=== PATIENT | female | born 1990 | race Caucasian/White ===

== ENCOUNTER 2022-10-22 21:08 | Emergency (ER) | payer MEDICAID, OTHER ==
[~2022-10-22] VITALS: Ht 147 cm; Wt 65.0 kg
[~2022-10-22 21:08] MED LIST: CYCL10TA9 PO; DOXY100C2 PO; GUAI120S36 PO; ONDAN4ODT PO
[2022-10-22 21:13] VITALS: BP 146/96
--- NOTE | 2022-10-22 21:29 | ED Abdominal Pain ---
General Chief Complaint: Abdominal/GI Problems Stated Complaint: AB PAIN Source of Information: Patient Exam Limitations: No Limitations (ABRAHAN CRISTOBAL) History of Present Illness Date Seen by Provider: Oct 22, 2022 Time Seen by Provider: 21:27 Initial Comments Patient is a 32-year-old female with a history of C-sections who presents ED with lower abdominal pain. Pain started 1 hour ago. Described as sharp radiate throughout her lower abdomen. She reports nausea without vomiting. She did have a few episodes of diarrhea without any blood or mucus. She is been having a bowel movement near every day. She does have a burning pain up into her upper abdomen. She denies of any frequent urination but reports some mild vaginal discharge with intermittent vaginal bleeding. She reports vaginal spotting since September 12. She states she did have a menstrual cycle during this time. She states September 12 she put a bag of meth into her vagina and did remove it fairly quick. History of C-sections. Denies any fever, chills, bodies, chest pain, shortness of breath. History of acid reflux. She took Tylenol at home without much improvement. (ABRAHAN CRISTOBAL) Allergies and Home Medications Allergies Coded Allergies: Penicillins (Verified Allergy, Unknown, 10/22/22) Patient Home Medication List Home Medication List Reviewed: Yes (ABRAHAN CRISTOBAL) Cyclobenzaprine Hcl (Cyclobenzaprine Hcl) 10 Mg Tablet, 1 EACH PO Q8HR, (Reported) Entered as Reported by: DARLYN ACEVES on 01/09/11 165 Doxycycline Hyclate (Doxycycline Hyclate) 100 Mg Capsule, 1 EACH PO BID Prescribed by: TIM CRESPO on 01/30/112327 Guaifenesin/D-Methorphan Hb (Guaifenesin With Dm Syrup) 120 Ml Syrup, 2 TSP PO Q4H PRN Prescribed by: TIM CRESPO on 01/30/112327 Ondansetron (Ondansetron Odt) 4 Mg Tab.rapdis, 4 MG SL Q4H PRN for NAUSEA/VOMITING Prescribed by: WILLIE BOCANEGRA on 10/22/22 2307 Ondansetron Hcl (Zofran Oral Dissolve) 4 Mg Tab, 4 MG PO Q4H Prescribed by: NATTY SUN on 01/09/111746 Review of Systems Review of Systems Constitutional: No chills, No diaphoresis, No malaise EENTM: No Double Vision, No Eye Pain Respiratory: Denies Cough Gastrointestinal: Abdominal Pain; Denies Constipated; Nausea; Denies Vomiting Genitourinary: Denies Burning, Denies Discharge, Denies Drainage, Denies Frequency, Denies Hematuria; Other (Vaginal discharge, vaginal bleeding) Musculoskeletal: No back pain, No joint pain Skin: No change in color, No change in hair/nails Psychiatric/Neurological: Denies Anxiety (ABRAHAN CRISTOBAL) All Other Systems Reviewed Negative Unless Noted: Yes (ABRAHAN CRISTOBAL) Physical Exam Vital Signs Vital Signs - First Documented 10/22/22 21:13 Temp 37.0 Pulse 104 Resp 18 B/P (MAP) 146/96 (113) Pulse Ox 100 O2 Delivery Room Air (DENICE,SULEMA K DO) Vital Signs Capillary Refill : (ABRAHAN CRISTOBAL) Height/Weight/BMI Height: '" Weight: lbs. oz. kg; BMI Method:Stated General Appearance: WD/WN, no apparent distress HEENT: PERRL/EOMI, normal ENT inspection, TMs normal Neck: non-tender, full range of motion, supple, normal inspection Respiratory: chest non-tender, lungs clear, normal breath sounds, no respiratory distress, no accessory muscle use Cardiovascular: regular rate, rhythm, no edema, no gallop, no JVD Gastrointestinal: normal bowel sounds, soft, no organomegaly, no pulsatile mass, tenderness (Right and left lower quadrant tenderness. Normal bowel sounds throughout. No rebound or guarding.) Extremities: normal range of motion, non-tender, normal inspection, no pedal edema Back: normal inspection, no CVA tenderness Neurologic/Psychiatric: video intern II-XII nml as tested, no motor/sensory deficits, alert, normal mood/affect, oriented x 3 (ABRAHAN CRISTOBAL) Progress/Results/Core Measures Results/Orders Lab Results Laboratory Tests Test 10/22/22 21:15 10/22/22 21:30 10/22/22 21:32 Range/Units Urine Color YELLOW Urine Clarity CLEAR Urine pH 5.0 5-9 Urine Specific [place] >=1.030 1.016-1.022 Urine Protein NEGATIVE NEGATIVE Urine Glucose (UA) NEGATIVE NEGATIVE Urine Ketones NEGATIVE NEGATIVE Urine Nitrite NEGATIVE NEGATIVE Urine Bilirubin NEGATIVE NEGATIVE Urine Urobilinogen 0.2 < = 1.0 MG/DL Urine Leukocyte Esterase NEGATIVE NEGATIVE Urine RBC (Auto) NEGATIVE NEGATIVE Urine RBC NONE /HPF Urine WBC 0-2 /HPF Urine Squamous Epithelial Cells 0-2 /HPF Urine Crystals NONE /LPF Urine Bacteria TRACE /HPF Urine Casts NONE /LPF Urine Mucus SMALL H /LPF Urine Culture Indicated NO Urine Test NEGATIVE NEGATIVE White Blood Count 9.0 4.3-11.0 10^3/uL Red Blood Count 4.38 3.80-5.11 10^6/uL Hemoglobin 8.1 L 11.5-16.0 g/dL Hematocrit 28 L 35-52 % Mean Corpuscular Volume 64 L 80-99 fL Mean Corpuscular Hemoglobin 19 L 25-34 pg Mean Corpuscular Hemoglobin Concent 29 L 32-36 g/dL Red Cell Distribution Width 19.1 H 10.0-14.5 % Platelet Count 398 130-400 10^3/uL Mean Platelet Volume 9.9 9.0-12.2 fL Immature Granulocyte % (Auto) 1 % Neutrophils (%) (Auto) 61 42-75 % Lymphocytes (%) (Auto) 31 12-44 % Monocytes (%) (Auto) 6 0-12 % Eosinophils (%) (Auto) 2 0-10 % Basophils (%) (Auto) 0 0-10 % Neutrophils # (Auto) 5.5 1.8-7.8 10^3/uL Lymphocytes # (Auto) 2.8 1.0-4.0 10^3/uL Monocytes # (Auto) 0.5 0.0-1.0 10^3/uL Eosinophils # (Auto) 0.1 0.0-0.3 10^3/uL Basophils # (Auto) 0.0 0.0-0.1 10^3/uL Immature Granulocyte # (Auto) 0.1 0.0-0.1 10^3/uL Sodium Level 139 135-145 MMOL/L Potassium Level 3.7 3.6-5.0 MMOL/L Chloride Level 107 98-107 MMOL/L Carbon Dioxide Level 21 21-32 MMOL/L Anion Gap 11 5-14 MMOL/L Blood Urea Nitrogen 13 7-18 MG/DL Creatinine 0.81 0.60-1.30 MG/DL Estimat Glomerular Filtration Rate 98 BUN/Creatinine Ratio 16 Glucose Level 80 70-105 MG/DL Calcium Level 9.2 8.5-10.1 MG/DL Corrected Calcium 9.0 8.5-10.1 MG/DL Total Bilirubin 0.7 0.1-1.0 MG/DL Aspartate Amino Transf (AST/SGOT) 28 5-34 U/L Alanine Aminotransferase (ALT/SGPT) 14 0-55 U/L Alkaline Phosphatase 74 40-136 U/L Total Protein 7.5 6.4-8.2 GM/DL Albumin 4.2 3.2-4.5 GM/DL Lipase 88 H 8-78 U/L (SULEMA GALDAMEZ DO) Medications Given in ED Current Medications Medications Dose Ordered Sig/Buck Route Start Time Stop Time Status Last Admin Dose Admin Iohexol 100 ml ONCE ONCE IV 10/22/22 22:15 10/22/22 22:16 DC 10/22/22 22:38 80 ML Ketorolac Tromethamine 30 mg ONCE ONCE IVP 10/22/22 21:30 10/22/22 21:31 DC 10/22/22 21:48 30 MG Ondansetron HCl 4 mg ONCE ONCE IVP 10/22/22 22:00 10/22/22 22:01 DC 10/22/22 21:54 4 MG Pantoprazole Sodium 40 mg ONCE ONCE PO 10/22/22 23:30 10/22/22 23:31 DC 10/22/22 23:31 40 MG Simethicone 80 mg ONCE ONCE PO 10/22/22 23:30 10/22/22 23:31 DC 10/22/22 23:37 80 MG Sodium Chloride 10 ml NEEDED PRN IV 10/22/22 22:15 10/23/22 00:26 DC 10/22/22 22:38 10 ML Sodium Chloride 100 ml ONCE ONCE IV 10/22/22 22:15 10/22/22 22:16 DC 10/22/22 22:38 80 ML (SULEMA GALDAMEZ DO) Vital Signs/I&O 10/22/22 21:13 Temp 37.0 Pulse 104 Resp 18 B/P (MAP) 146/96 (113) Pulse Ox 100 O2 Delivery Room Air (DENICE,SULEMA K DO) Departure Communication (PCP) Reviewed previous ER visits, H&P, lab testing. Differential diagnoses UTI PID, appendicitis, constipation, colitis. Patient states pain started 1 hour before arrival. Started in her lower abdomen described as sharp constant radiate throughout the abdomen. She feels nauseous without vomiting. She states she is having a bowel movement every day and states it watery but states she feels bloated. History of GERD not currently on medication. Due to her current complaint and location CBC, CMP, lipase, urinalysis, wet mount, STD cultures. She states September 12 she put a bag of meth into her vagina as she was hiding this. She is concerned since then she has had abnormal spotting. She did have a menstrual cycle during that period. No history of irregular menstrual cycles. Urinalysis was negative for or infection. Self swab with wet mount and STD cultures. Wet mount was unremarkable. STD cultures pending. She was not treated prophylactically. CBC, CMP was grossly unremarkable. Hemoglobin was 8.1, hematocrit 28. Likely secondary to low iron. Suggest iron supplements [address] abdomen pelvis Moderate gastric distention containing foodstuff. There is also moderate stool in the colon, correlate for constipation. Concern that symptoms are secondary to constipation. Suggest starting MiraLAX. May consider Dulcolax. If no improvement of pain or several bowel movements may consider a bottle magnesium citrate. Discussed high-fiber diet. Drink plenty of fluids. Recommend no sexual intercourse until results of the STD cultures. If any worsening pain to return back to ED. She did request something for her acid reflux as she feels bloated and burning sensation up into her upper abdomen. She did receive Protonix and Gas-X. May consider taking Pepcid or Protonix if continue indigestion type symptoms or discomfort with eating. Follow-up with PCP in 2 to 3 days for reevaluation. Patient vital signs stable. No evidence of surgical abdomen. (ABRAHAN CRISTOBAL) Impression Primary Impression: Abdominal pain Disposition: 01 HOME, SELF-CARE Condition: Stable Departure-Patient Inst. Referrals: [facility] [place] NO,LOCAL PHYSICIAN (PCP) Primary Care Physician Patient Instructions: Abdominal Pain, Adult ED, Constipation in adults Add. Discharge Instructions: Recommend anti-inflammatories such as ibuprofen for the pain. Recommend staying hydrated. Zofran for nausea. recommend taking MiraLAX and Dulcolax. If no improvement of bowel movement recommend drinking a full bottle magnesium citrate. Recommend staying hydrated All discharge instructions reviewed with patient and/or family. Voiced understanding. Scripts Ondansetron (Ondansetron Odt) 4 Mg Tab.rapdis 4 MG SL Q4H PRN for NAUSEA/VOMITING, #8 TAB Prov: ABRAHAN CRISTOBAL 10/22/22 ATTENDING PHYSICIAN NOTE: I WAS PHYSICALLY PRESENT ER PHYSICIAN, BUT I WAS NOT INVOLVED IN ANY DECISION MAKING OR ANY CARE OF THIS PATIENT, AND I AM NOT COLLABORATING PHYSICIAN. (SULEMA GALDAMEZ DO) ABRAHAN CRISTOBAL Oct 22, 2022 21:29 SULEMA GALDAMEZ DO Oct 23, 2022 06:37
[2022-10-22] MEDS ORDERED: KETOROLAC INJ 30 MG/ML VIAL IVP ONE (21:30)
[2022-10-22 21:38] LABS: BASOPHILS % (AUTO) 0 % (0-10); EOSINOPHILS # (AUTO) 0.1 10^3/uL (0.0-0.3); EOSINOPHILS % (AUTO) 2 % (0-10); HEMATOCRIT 28 % (35-52); HEMOGLOBIN 8.1 g/dL (11.5-16.0); LYMPHOCYTES # (AUTO) 2.8 10^3/uL (1.0-4.0); LYMPHOCYTES % (AUTO) 31 % (12-44); MEAN CORPUSCULAR HEMOGLOBIN 19 pg (25-34); MEAN CORPUSCULAR HGB CONC 29 g/dL (32-36); MEAN CORPUSCULAR VOLUME 64 fL (80-99); MEAN PLATELET VOLUME 9.9 fL (9.0-12.2); MONOCYTES # (AUTO) 0.5 10^3/uL (0.0-1.0); MONOCYTES % (AUTO) 6 % (0-12); NEUTROPHILS # (AUTO) 5.5 10^3/uL (1.8-7.8); NEUTROPHILS % (AUTO) 61 % (42-75); PLATELET COUNT 398 10^3/uL (130-400)
[2022-10-22 21:49] LABS: ALBUMIN 4.2 GM/DL (3.2-4.5); POTASSIUM 3.7 MMOL/L (3.6-5.0)
[2022-10-22 21:50] LABS: CALCIUM 9.2 MG/DL (8.5-10.1)
[2022-10-22 21:51] LABS: TOTAL PROTEIN 7.5 GM/DL (6.4-8.2)
[2022-10-22 21:53] LABS: BILIRUBIN,TOTAL 0.7 MG/DL (0.1-1.0)
[2022-10-22 21:55] LABS: CREATININE SERUM 0.81 MG/DL (0.60-1.30)
[2022-10-22] MEDS ORDERED: ONDANSETRON INJECTION 4 MG/2 ML (SDV) IVP ONE (22:00)
[2022-10-22 22:11] LABS: CLARITY,URINE CLEAR; COLOR,URINE YELLOW; GLUCOSE, URINE (UA) NEGATIVE (NEGATIVE); PROTEIN,URINE NEGATIVE (NEGATIVE)
[2022-10-22 22:12] LABS: BACTERIA,URINE TRACE /HPF; BILIRUBIN,URINE NEGATIVE (NEGATIVE); KETONES,URINE NEGATIVE (NEGATIVE); LEUKOCYTE ESTERASE ,URINE NEGATIVE (NEGATIVE); NITRITE,URINE NEGATIVE (NEGATIVE); SQUAMOUS EPITHELIAL CELL,UR 0-2 /HPF; WBC,URINE 0-2 /HPF
[2022-10-22] MEDS ORDERED: CATHETER FLUSH 10 ML SYR IV PRN (22:15)
[2022-10-22] MEDS ORDERED: HOLD METFORMIN - RECEIVED CONTRAST 20 ML VIAL IV SCH (22:15)
[2022-10-22] MEDS ORDERED: NS 100 ML (IVPB) BAG IV ONE (22:15)
[2022-10-22] MEDS ORDERED: IOHEXOL 350 MG/ML 100 ML (OMNIPAQUE 350) VIAL IV ONE (22:15)
[2022-10-22] MEDS ORDERED: ONDA4TAB11 SL (23:07)
[2022-10-22] MEDS ORDERED: PANTOPRAZOLE 40 MG TABLET PO ONE (23:30)
[2022-10-22] MEDS ORDERED: SIMETHICONE 80 MG CHEWABLE TABLET PO ONE (23:30)
--- NOTE | 2022-10-23 08:12 | Diagnostic Imaging Report ---
PROCEDURE: CT abdomen and pelvis with contrast, rule out appendicitis. TECHNIQUE: Multiple contiguous axial images were obtained through the abdomen and pelvis after the administration of intravenous contrast. All CT scans use one or more of the following dose optimizing techniques: automated exposure control, MA and/or KvP adjustment based on patient size and exam type or iterative reconstruction. INDICATION: Right lower quadrant pain and nausea. No prior studies are available for comparison. Lung bases are clear. No liver mass is identified. Gallbladder is contracted. There is no biliary duct dilatation. The pancreas and spleen are unremarkable. No adrenal mass is identified. Kidneys are unremarkable. Aorta is nonaneurysmal. There is a moderate distention to the stomach which contains food stuff. There is also a moderate stool load throughout the colon. Small bowel is nondilated. No free fluid is seen. No inflammatory changes are identified. Uterus unremarkable. There are small cysts left ovary. Bladder is unremarkable. IMPRESSION: 1. Moderate gastric distention containing foodstuff. There is also moderate stool in the colon, correlate for constipation. No acute feature in the abdomen or pelvis is identified. Dictated by: Dictated on workstation # [id number]
== END 2022-10-22 23:56 | disposition home or self-care (01) ==
LOC: EDUNIT# 21:08 → ER 21:11
DX: R10.31 Right lower quadrant pain (principal); R10.32 Left lower quadrant pain; R11.0 Nausea; Z87.19 Personal history of other diseases of the digestive system
CPT/HCPCS: 36415; 74177; 80053; 81000; 83690; 84703; 85025; 87210; 87491; 87591